=== PATIENT | female | born 1985 | race Hispanic/Latino ===

== ENCOUNTER → 2018-05-27 07:56 | Outpatient (CLI) | payer OTHER, SELFPAY ==
[2018-05-27 09:08] LABS: HCG Quantitative /Beta subunit 272.25 mIU/mL
== END ==
PROVIDERS: PCP Family Medicine; Visit Provider Family Medicine
DX: N91.2 Amenorrhea, unspecified (principal)
CPT/HCPCS: 36415; 84702

== ENCOUNTER → 2019-02-03 15:03 | Outpatient (CLI) | payer OTHER, SELFPAY ==
[2019-02-03 16:21] LABS: HCG Quantitative /Beta subunit 8843.3 mIU/mL
== END ==
PROVIDERS: PCP Family Medicine; Visit Provider Family Medicine
DX: N91.2 Amenorrhea, unspecified (principal)
CPT/HCPCS: 36415; 84702

== ENCOUNTER → 2019-03-14 16:00 | Outpatient (CLI) | payer OTHER, SELFPAY ==
[2019-03-14 17:07] LABS: Appearance Urine UA CLEAR; Bilirubin Urine UA NEGATIVE (NEGATIVE); Color Urine UA YELLOW; Glucose Urine UA NEGATIVE (Negative); Ketones Urine UA NEGATIVE (NEGATIVE); Leukocyte Esterase Urine UA NEGATIVE (NEGATIVE); Nitrite Urine UA NEGATIVE (Negative); Occult Blood Urine UA NEGATIVE (Negative); Protein Urine UA NEGATIVE (Negative); Specific Gravity Urine UA <=1.005 (1.000-1.035); Urobilinogen Urine UA 0.2 E.U./dL (0.2); pH Urine UA 6.5 (4.5-8.0)
[2019-03-14 17:19] LABS: Add Manual Diff / Slide Review NO; Basophils Absolute Auto 0 /uL (0-100); Basophils Percent Auto 0.4 % (0-2); Eosinophils Absolute Auto 200 /uL (0-450); Eosinophils Percent Auto 1.7 % (2-4); Hematocrit 38.7 % (36-46); Hemoglobin 13.4 g/dL (12.0-16.0); Lymphocytes Absolute Auto 2100 /uL (1100-4500); Mean Corpuscular HGB Conc 34.5 % (30-36); Mean Corpuscular Hemoglobin 29.5 PG (26-34); Mean Corpuscular Volume 85.3 fL (80-100); Monocytes Absolute Auto 500 /uL (0-900); Monocytes Percent Auto 4.7 % (3-14); Neutrophils Absolute Auto 8300 /uL (1500-7000); Neutrophils Percent Auto 74.2 % (50-75); Platelet Count 278 X10^3/uL (150-400); Red Blood Cell Count 4.54 X10^6/uL (4.0-5.2); Red Cell Distribution Width 12.9 % (11.6-14.8); White Blood Cell Count 11.1 X10^3/uL (4.5-11.0)
[2019-03-14 20:55] LABS: Rubella Antibody IgG 66.2 IU/mL (>15)
[2019-03-14 20:59] LABS: Hepatitis B Surface Antigen NEGATIVE s/c (NEGATIVE)
[2019-03-14 21:15] LABS: HIV 1 and 2 Antibody NEGATIVE (NEGATIVE); Hep C Virus Ab w/Reflex Quant NEGATIVE s/c (NEGATIVE)
[2019-03-16 13:59] LABS: RPR Screen Nonreactive (Nonreactive)
== END ==
PROVIDERS: PCP Family Medicine; Visit Provider Obstetrics & Gynecology
DX: Z34.81 Encounter for supervision of other normal pregnancy, first trimester (principal)
CPT/HCPCS: 36415; 80055; 81003; 86703; 86787; 86803; 86850; 86900; 86901; 87077; 87086

== ENCOUNTER → 2019-05-12 16:34 | Outpatient (CLI) | payer OTHER, SELFPAY ==
[2019-05-19 16:04] LABS: AFP, Serum 43.2 ng/mL; Calc Gestational Age 19.1; Cigarette Smoker NO; Donated Egg NOT GIVEN; Donor Egg Age NOT GIVEN; Estriol, Free 1.56 ng/mL; Inhibin A, Dimeric 179 pg/mL; Maternal Weight 177 lbs; Number of Fetuses NOT GIVEN; Previous Pregnancy Down Syndro NOT GIVEN; hCG, MoM 1.57; hCG, Serum 30.1 IU/mL
== END ==
PROVIDERS: PCP Family Medicine; Visit Provider Obstetrics & Gynecology
DX: Z34.82 Encounter for supervision of other normal pregnancy, second trimester (principal)
CPT/HCPCS: 36415; 82105; 82677; 84702; 86336

== ENCOUNTER → 2019-05-19 10:51 | Outpatient (CLI) | payer OTHER, SELFPAY ==
--- NOTE | 2019-05-19 10:54 | DI.US.S_ITS ---
PROCEDURE: US OB >= 14 WEEKS FETUS INDICATIONS: Anatomic Survey OUTSIDE/PRIOR DATING DATA: Last menstrual period (LMP): 12/29/18. LMP-based estimated date of delivery (TUTU): 10/05/19. First dating scan (date and location): 05/19/19. Estimated date of delivery (TUTU) from first dating scan: 10/04/19. TECHNIQUE: Real-time scanning was performed of the fetus, with image documentation and biometric measurements. Endovaginal scanning: Not performed COMPARISON: [facility], , US OB >= 14 WEEKS FETUS, 05/12/2019, 16:27. FINDINGS: General: A single living intrauterine gestation is present. Presentation: variable Placenta: Placental position is inferior, without previa. Amniotic fluid index: 13.3 cm, normal range is 5-24 cm. largest vertical fluid pocket measured 3.8 cm heart rate: 153 beats per minute. Maternal cervical canal: 4.9 cm long. Normal lower limit is 2.5 cm. biometrics: Biparietal diameter: 4.5 cm, correlating with 19 weeks and 4 days Head circumference: 17.3 cm, correlating with 19 weeks and 6 days Abdominal circumference: 16.3 cm, correlating with 21 weeks and 3 days Femur length: 3.5 cm, correlating with 21 weeks and 0 days. Estimated gestational age from initial scan: not applicable. Composite gestational age from present scan: 20 weeks and 2 days Estimated weight and percentile: 392 g which places the fetus within the 83rd percentile based on gestational age. Anatomic survey: Neuro: Ventricles are non-dilated at less than 10 mm. Cisterna magna is normal at 3-11 mm. Cerebellum is normal in size and morphology. Nuchal skin fold: Normal at less than 6 mm between 14-21 weeks gestational age. Face: Nose and lips, facial profile are normal. Spine: No evidence for spina bifida. Heart: 4-chambered heart is present, with normal ventricular outflow tracts. Incidental note of several episodes of occasional arrhythmias. This persisted intermittently throughout the duration of this examination. Diaphragm: Diaphragm is intact. Stomach: Left-sided stomach is present. Kidneys: No hydronephrosis. Normal is less than 5 mm in 2nd trimester, less than 7 mm in 3rd trimester. Cord: 3-vessel cord has orthotopic insertion. Bladder: Normal in size. Extremities: All 4 extremities identified. IMPRESSION: 1. Single living intrauterine gestation with an estimated sonographic gestational age of approximately 20 weeks and 2 days versus approximately 20 weeks and 5 days by last menstrual period. Measurements are concordant. Estimated weight of approximately 392 g which places the fetus within the 83rd percentile based on gestational age. 2. Unremarkable anatomic screening survey; however, incidental note of a few episodes of arrhythmia/premature atrial contractions. Recommend correlation with maternal risk factors/medical history with short interval followup ultrasound to document persistence versus resolution or echocardiogram to further evaluate. Findings were discussed telephonically with Dr. Castaneda as well as the patient before discharge from the radiology department. Dictated by: Juanito Mejia M.D. on 05/19/2019 at 13:29 Approved by: Juanito Mejia M.D. on 05/19/2019 at 13:52
== END ==
PROVIDERS: PCP Family Medicine; Visit Provider Obstetrics & Gynecology
DX: Z34.82 Encounter for supervision of other normal pregnancy, second trimester (principal); Z3A.20 20 weeks gestation of pregnancy
CPT/HCPCS: 76811

== ENCOUNTER → 2019-07-08 10:12 | Outpatient (CLI) | payer OTHER, SELFPAY ==
[2019-07-08 12:56] LABS: Hematocrit 37.5 % (36-46); Hemoglobin 13.3 g/dL (12.0-16.0)
[2019-07-10 16:37] LABS: GTT (PREG) 1 Hour PP 50gm Dose 115 mg/dL (76-139)
== END ==
PROVIDERS: PCP Family Medicine; Visit Provider Obstetrics & Gynecology
DX: Z34.82 Encounter for supervision of other normal pregnancy, second trimester (principal)
CPT/HCPCS: 82950; 85014; 85018

== ENCOUNTER 2019-09-11 02:30 | Inpatient (IN) | payer OTHER, SELFPAY ==
[2019-09-11 03:15] VITALS: BP 123/69
--- NOTE | 2019-09-11 03:29 | DI.US.S_ITS ---
PROCEDURE: US OB LIMITED INDICATIONS: PRESENTATION OUTSIDE/PRIOR DATING DATA: Last menstrual period (LMP): 12/29/18. LMP-based estimated date of delivery (TUTU): 10/05/19. First dating scan (date and location): 03/14/19. Estimated date of delivery (TUTU) from first dating scan: 10/04/19. TECHNIQUE: Real-time scanning was performed of the fetus, with image documentation. COMPARISON: [facility], , US OB >= 14 WEEKS FETUS, 08/16/2019, 10:11. [facility]ed With [facility], , US OB >= 14 WEEKS FETUS, 05/19/2019, 11:01. [facility], , US OB >= 14 WEEKS FETUS, 05/12/2019, 16:27. [facility], , US OB >= 14 WEEKS FETUS, 04/17/2019, 15:31. [facility], , US OB <= 14 WEEKS FETUS, 03/14/2019, 15:42. FINDINGS: A single living intrauterine gestation is present. Presentation: Vertex. Placenta: Placental position is fundal, without previa. . heart rate: 160 beats per minute. Estimated gestational age from initial scan: 36 weeks 5 days. IMPRESSION: Limited exam noting single live intrauterine in vertex position. Dictated by: Esther Rodriguez M.D. on 09/11/2019 at 8:46 Approved by: Esther Rodriguez M.D. on 09/11/2019 at 8:47
[2019-09-11] MEDS: PENICILLIN G POTASSIUM 5,000,000 UNIT in DEXTROSE 5% IN WATER 250 ML IV (04:31)
[2019-09-11] MEDS: LACTATED RINGERS 1,000 ML 100 ML IV (04:32)
[2019-09-11 04:54] LABS: Hematocrit 37.5 % (36-46); Hemoglobin 13.6 g/dL (12.0-16.0); Red Blood Cell Count 4.69 X10^6/uL (4.0-5.2); White Blood Cell Count 9.4 X10^3/uL (4.5-11.0)
[2019-09-11 04:56] LABS: Mean Corpuscular HGB Conc 36.3 % (30-36); Platelet Count 256 X10^3/uL (150-400); Red Cell Distribution Width 14.2 % (11.6-14.8)
[2019-09-11 04:57] LABS: Add Manual Diff / Slide Review YES
[2019-09-11] MEDS: CALCIUM CARBONATE 500 MG TAB 1000 MG PO (05:12)
[2019-09-11 06:55] LABS: Neutrophils Absolute Manual 6956 /uL (3000-5900); Spherocytes 1+; Total Cells Counted 100
[2019-09-11] MEDS: LACTATED RINGERS 1,000 ML 125 ML IV ×2 (08:38→08:45)
[2019-09-11] MEDS: CEFAZOLIN 2 GM/100 ML FROZ.PIGGY IV ×2 (08:38→08:40)
[2019-09-11 10:45] LABS: Strep Grp B PCR POS for Grp B Strep
[2019-09-11] MEDS: CEFAZOLIN 1 GM/50 ML FROZ.PIGGY IV (16:45)
--- NOTE | 2019-09-11 20:16 | P.HPOB_ITS ---
OB HPI Date/Time Date of admission: 09/11/19 Date Patient Seen: 09/11/19 Time Patient Seen: 07:30 History of Present Condition Chief complaint: Evaluation of Labor : 3 Para: 1 Estimated Date of Delivery: 10/05/19 Estimated Gestational Age (weeks): 36+4 Narrative: Breonna Reis is a 34 year old female 3 para 1 at 36-,4/7 weeks gestation with spontaneous rupture membranes at 2:30 a.m. this morning Very irregular contractions. Group B strep has not been obtained as of yet History of Present care: good care, initiated at week # (10), number of visits (7) and pounds weight gain (5) Dating criteria: LMP confirmed by 1st trimester US Ultrasounds: normal 1st trimester US Abnormal ultrasound findings: PAC's. Normal echo Obstetrical complications: none Medical complications: none Preadmission Labs Blood type: O (+) positive -: Antibody screen: negative, GBS status: unknown, HBsAG: negative, HIV: n egative and RPR/VDLR: negative -: Chlamydia screen: not detected and Gonorrhea screen: not detected -: Rubella: immune and Varicella: immune HCT: 37.5 HCAB: negative PAP: Abnormal (ASCUS, +HR HPV) Quad screen: Normal Urine: No Growth 1 hr GTT: 115 Prior (ies) History: at 38.6 oligohydramnios inductio SAB at 8 wks Evaluation Evaluation Baseline heart rate: 135 Variability: Moderate (11-25) monitor accelerations: Present monitor decelerations: Absent Contraction Frequency (minutes): 10 Uterine Contraction Intensity: Mild Category of Tracing: I Cervical dilation (cm): 1 Cervical effacement (%): 60 station: -3 Laboratory results: Laboratory Tests 09/11/19 09/11/19 09/11/19 03:35 03:35 08:04 WBC 9.4 RBC 4.69 Hgb 13.6 Hct 37.5 MCV 80.0 MCH 29.0 MCHC 36.3 H RDW 14.2 Plt Count 256 Neut % (Auto) Not Reportable Lymph % (Auto) Not Reportable Cascade % (Auto) Not Reportable Eos % (Auto) Not Reportable Baso % (Auto) Not Reportable Lymph # (Auto) Not Reportable Cascade # (Auto) Not Reportable Baso # (Auto) Not Reportable Total Counted 100 Seg Neutrophils % 71.0 H Band Neutrophils % 3.0 Lymphocytes % (Manual) 19.0 L Atypical Lymphs % 4.0 H Monocytes % (Manual) 3.0 Neutrophils # (Manual) 6956 H Plt Morphology Comment RBC Morphology See below Spherocytes 1+ H Group B Strep (PCR) Pos for grp b strep H Blood Type O Positive Antibody Screen Negative PFSH Social History Smoking Status: Never smoker alcohol intake: current substance use type: does not use Meds Home Medications and Allergies Home Medications Medication Instructions Recorded Confirmed Type PNV cmb#95-ferrous fumarate-FA 1 tab PO DAILY 09/11/19 09/11/19 History [] Allergies Allergy/AdvReac Type Severity Reaction Status Date / Time No Known Drug Allergies Allergy Verified 09/11/19 03:38 Exam Vital Signs (past 8 hours): Generally: No acute distress Lungs: Clear to auscultation bilaterally Cardiovascular: Regular rate and rhythm Fundal height: 37 cm Estimated weight 7 lb Extremities: Trace edema Objective Labs Result Diagrams: 09/11/19 03:35 Labs: Laboratory Results - last 24 hr 09/11/19 09/11/19 09/11/19 03:35 03:35 08:04 WBC 9.4 RBC 4.69 Hgb 13.6 Hct 37.5 MCV 80.0 MCH 29.0 MCHC 36.3 H RDW 14.2 Plt Count 256 Neut % (Auto) Not Reportable Lymph % (Auto) Not Reportable Cascade % (Auto) Not Reportable Eos % (Auto) Not Reportable Baso % (Auto) Not Reportable Lymph # (Auto) Not Reportable Cascade # (Auto) Not Reportable Baso # (Auto) Not Reportable Total Counted 100 Seg Neutrophils % 71.0 H Band Neutrophils % 3.0 Lymphocytes % (Manual) 19.0 L Atypical Lymphs % 4.0 H Monocytes % (Manual) 3.0 Neutrophils # (Manual) 6956 H Plt Morphology Comment RBC Morphology See below Spherocytes 1+ H Group B Strep (PCR) Pos for grp b strep H Blood Type O Positive Antibody Screen Negative Assessment and Plan Assessment and Plan Assessment and Plan narrative: Assessment: 34-year-old 3 para 1 at 36-,4/7 weeks gestation with spontaneous rupture membranes with irregular contractions Patient's in the and traveling home from [place], will be here this evening Patient's desire is not to start augmentation as of yet Plan: GBS obtained Cefazolin 2 g q.8 hours Expected management to spontaneous vaginal delivery Time Spent with Patient Total time spent with greater than 50% in coordination of care (as documented) at patient's floor/unit and/or counseling patient:: 15-24 minutes
--- NOTE | 2019-09-11 20:23 | PM.OBPRVD ---
 Events: Labor < 37 Weeks and Premature Rupture of Membrane Labor & Delivery Delivery date: 09/11/19 Cervical ripening method: none Induction method: none Delivery monitor: external FHT and external uterine Route of delivery: Episiotomy description: None L&D Laceration Description: Superficial (Periurethral, right labial, introitus) Delivery repair: chromic (4-0) Estimated blood loss (mL): 75 Anesthesia type: Epidural Complications: None Narrative: Patient complete and pushed x2. At 7:30 p.m., a live female infant delivered spontaneously over an intact perineum. No nuchal cord. The remainder of the body delivered without difficulty and was placed on mom's abdomen. The cord was double clamped and cut after it stopped pulsing. Cord bloods were obtained. The placenta delivered intact with a 3 vessel cord at 7:47 p.m.. Pitocin was given in the IV fluids prior to placental delivery. The fundus was massaged to firm. The bladder was emptied of approximately 250 cc of clear yellow urine. There were 3 superficial lacerations that were repaired with 4 0 chromic. The 1st was periurethral, the 2nd was on the right labia, the 3rd was at the introitus. Hemostasis was achieved. Estimated blood loss 75 cc. Apgars 9 at 1 minute and 9 at 5 minutes. Epidural analgesia. . Mom and stable to recovery. Plan for aftercare: Routine care
[2019-09-11] MEDS: IBUPROFEN 600 MG TABLET PO (21:14)
[2019-09-11] MEDS: OXYTOCIN 10 UNIT/ML VIAL IM (21:14)
[2019-09-12] MEDS: IBUPROFEN 600 MG TABLET PO ×4 (03:04→21:34)
[2019-09-12 06:05] LABS: Hematocrit 35.5 % (36-46); Hemoglobin 12.7 g/dL (12.0-16.0)
[2019-09-12] MEDS: DOCUSATE 250 MG CAPSULE PO (09:26)
[2019-09-12] MEDS: PRENATAL VIT,CALC/IRON/FOLIC 1 TABLET 1 TAB PO (09:26)
[2019-09-12] MEDS: ACETAMINOPHEN 325 MG TABLET 650 MG PO ×2 (12:55→20:01)
--- NOTE | 2019-09-12 21:18 | PM.OBPN.1 ---
Exam Vital Signs (past 8 hours): Generally: Patient is sitting up in bed, nursing , no acute distress Fundus: Firm at U -1 Extremities: Negative Homans, no edema Objective Labs Result Diagrams: 09/12/19 05:45 Labs: Laboratory Results - last 24 hr 09/12/19 05:45 Hgb 12.7 Hct 35.5 L Assessment & Plan Plan day: 1 plan OB: routine care Comments: Probable D/C 09/13/19 Time Spent With Patient Time: Total time spent is greater than 50% in coordination of care (as documented) at patient's floor/unit and/or counseling patient: Time with patient: less than 15 minutes
[2019-09-13 03:26] VITALS: TEMP 37.1
[2019-09-13] MEDS: ACETAMINOPHEN 325 MG TABLET 650 MG PO (03:26)
[2019-09-13] MEDS: IBUPROFEN 600 MG TABLET PO (03:26)
[2019-09-13] MEDS: PRENATAL VIT,CALC/IRON/FOLIC 1 TABLET 1 TAB PO (08:52)
[2019-09-13] MEDS: DOCUSATE 250 MG CAPSULE PO (08:52)
[2019-09-13 09:25] VITALS: BP 108/75; PULSE 68; RESP 16; TEMP 36.8
[2019-09-13] MEDS: LANOLIN OINT 7 GM 1 APPLIC TOP (12:39)
--- NOTE | 2019-09-13 23:49 | PM.OBDS.1 ---
Discharge Providers Provider Date of admission: 09/11/19 02:30 Discharge Date: 09/13/19 Primary care physician: Erin Diana DO Consults: 09/11/19 20:31 Consult to Physical Therapy Aide Routine Comment: Discharge provider: Zahida Castaneda MD Summary Hospital Course Date Patient Seen: 09/13/19 Time Patient Seen: 07:45 Procedures: Spontaneous vaginal delivery Epidural analgesia Hospital Course: Patient is a 34-year-old who presented at 36-,5/7 weeks gestation with spontaneous rupture of membranes. Several hours later she started having contractions and cervical dilation. No Pitocin augmentation was necessary. She progressed to complete dilation and had a spontaneous vaginal delivery. Her course was unremarkable. Peripartum Data Infant Delivery Method: Natural Vaginal Laceration description: Superficial Episiotomy description: None Procedures: Spontaneous vaginal delivery Epidural analgesia Superficial laceration repair complications: none Status at Discharge Cognitive/behavioral status at discharge: oriented Functional status at discharge: independent ambulation Overall status at discharge: patient is progressing back to baseline Time Spent with Patient Time attestation: Total time spent providing and/or coordinating discharge services: Time spent: Less than 30 minutes Objective Labs Result Diagrams: 09/12/19 05:45 Exam Vital Signs (past 8 hours): Generally: Patient is sitting up in bed, holding , no acute distress Fundus: Firm at U -2 Extremities: Trace edema, negative Homans Discharge Plan Discharge Plan Patient Disposition: Home Discharge comment: Call with fever, chills or bleeding vaginally more than a pad in an hour Tylenol/Ibuprofen for pain Discharge Med Rec/Prescriptions Prescriptions: Continued PNV cmb#95-ferrous fumarate-FA [] 28 mg iron- 800 mcg Tablet 1 tab PO DAILY RF: 0 Follow up/Referrals: Zahida Castaneda MD [Physician] - 6 Weeks (Appointment with on at 4:00pm check.) Provider Discharge Instructions Activity: No intercourse Skin/Wound/Dressing Care Report to your healthcare provider any signs of infection, such as:: chills, fever, increased pain and unusual drainage Visit Report/Discharge Packet Instructions: DI for Labor and Delivery, Vaginal Stand Alone Forms: Discharge: Care Discharge Data Primary Care Provider: Erin Diana Discharges patient from system. Discharge Date/Time: 09/13/19 13:38
== END 2019-09-13 13:38 | disposition home or self-care (01) | DRG 807 ==
PROVIDERS: Obstetrics & Gynecology; Admitting Provider Obstetrics & Gynecology; PCP Family Medicine; Visit Provider Obstetrics & Gynecology
DX: O60.14X0 Preterm labor third trimester with preterm delivery third trimester, not applicable or unspecified (principal); Z37.0 Single live birth; O70.0 First degree perineal laceration during delivery; Z3A.36 36 weeks gestation of pregnancy
CPT/HCPCS: 01967; 36415; 59050; 59400; 76815; 84112; 85014; 85018; 85025; 86850; 86900; 86901; 87653; G0379; J0690; J2540; J2590

== ENCOUNTER → 2019-09-28 09:24 | Outpatient (CLI) | payer OTHER, SELFPAY ==
[2019-09-28 10:22] LABS: Appearance Urine UA CLOUDY; Bilirubin Urine UA NEGATIVE (NEGATIVE); Color Urine UA YELLOW; Glucose Urine UA NEGATIVE (Negative); Ketones Urine UA NEGATIVE (NEGATIVE); Leukocyte Esterase Urine UA 2+ (NEGATIVE); Nitrite Urine UA NEGATIVE (Negative); Occult Blood Urine UA 3+ (Negative); Protein Urine UA 2+ (Negative); Urobilinogen Urine UA 0.2 E.U./dL (0.2)
[2019-09-28 10:30] LABS: pH Urine UA 5.5 (4.5-8.0)
[2019-09-28 10:36] LABS: Bacteria Urine Many (>30); Culture Indicated Urine Specimen Cultured; RBC Urine 30-100/HPF (0-5/HPF); WBC Urine >100/HPF (0-5/HPF)
== END ==
PROVIDERS: Family Provider Family Medicine; PCP Family Medicine; Visit Provider Obstetrics & Gynecology
DX: R39.9 Unspecified symptoms and signs involving the genitourinary system (principal)
CPT/HCPCS: 81001; 87077; 87086; 87186

== ENCOUNTER → 2020-10-04 15:40 | Outpatient (CLI) | payer OTHER, SELFPAY ==
--- NOTE | 2020-10-04 15:43 | DI.RAD.S_ITS ---
PROCEDURE: XR LUMBAR SPINE 2-3V INDICATIONS: back pain TECHNIQUE: 3 views of the lumbar spine were acquired. COMPARISON: None. FINDINGS: Bones: No fracture. Mild dextrocurvature. Multilevel degenerative endplate sclerosis and spurring. Diffuse facet arthropathy. Mild diffuse lower thoracic disc space narrowing. Lumbar disc spaces grossly preserved. Soft tissues: Overlying bowel gas pattern is normal. No suspicious soft tissue calcifications. IMPRESSION: Mild dextrocurvature Mild lower thoracic spondylosis. Diffuse facet arthropathy Dictated by: Mansoor Thomas M.D. on 10/04/2020 at 16:57 Approved by: Mansoor Thomas M.D. on 10/04/2020 at 16:58
--- NOTE | 2020-10-04 15:43 | DI.RAD.S_ITS ---
PROCEDURE: XR THORACIC SPINE 3V INDICATIONS: back pain TECHNIQUE: 3 views of the thoracic spine were acquired. COMPARISON: None. FINDINGS: Bones: No fractures or dislocations. No suspicious bony lesions. Multilevel degenerative endplate sclerosis and spurring. Diffuse facet arthropathy. Soft tissues: No paravertebral stripe thickening. IMPRESSION: No fracture Dictated by: Mansoor Thomas M.D. on 10/04/2020 at 16:58 Approved by: Mansoor Thomas M.D. on 10/04/2020 at 17:00
[2020-10-05 09:23] LABS: Add Manual Diff / Slide Review NO; Basophils Absolute Auto 100 /uL (0-100); Eosinophils Absolute Auto 400 /uL (0-450); Eosinophils Percent Auto 3.2 % (2-4); Hematocrit 41.6 % (36-46); Hemoglobin 14.1 g/dL (12.0-16.0); Lymphocytes Absolute Auto 2300 /uL (1100-4500); Lymphocytes Percent Auto 20.8 % (25-40); Mean Corpuscular HGB Conc 33.8 % (30-36); Mean Corpuscular Hemoglobin 29.2 PG (26-34); Mean Corpuscular Volume 86.3 fL (80-100); Monocytes Absolute Auto 600 /uL (0-900); Neutrophils Absolute Auto 7900 /uL (1500-7000); Platelet Count 350 X10^3/uL (150-400); Red Blood Cell Count 4.82 X10^6/uL (4.0-5.2); Red Cell Distribution Width 13.5 % (11.6-14.8); White Blood Cell Count 11.2 X10^3/uL (4.5-11.0)
== END ==
PROVIDERS: Family Provider Family Medicine; PCP Family Medicine; Referring Provider Registered Nurse; Visit Provider Registered Nurse
DX: M47.814 Spondylosis without myelopathy or radiculopathy, thoracic region (principal); M47.816 Spondylosis without myelopathy or radiculopathy, lumbar region; R79.89 Other specified abnormal findings of blood chemistry; Z79.899 Other long term (current) drug therapy
CPT/HCPCS: 36415; 72072; 72100; 80053; 85025

== ENCOUNTER → 2020-10-08 10:15 | Outpatient (CLI) | payer OTHER, SELFPAY ==
[2020-10-08 11:12] LABS: Alanine Aminotransferase 21 IU/L (<35); Albumin 4.1 g/dL (3.5-5.0); Albumin Globulin Ratio 1.2 (1.0-2.8); Alkaline Phosphatase 59 U/L (38-126); BUN Creatinine Ratio 28.2 (6-22); Bilirubin Total 0.8 mg/dL (0.2-1.3); Blood Urea Nitrogen 22 mg/dL (7-17); Calcium 9.4 mg/dL (8.4-10.2); Carbon Dioxide 26 mmol/L (22-32); Chloride 106 mmol/L (98-107); Estimated Glomerular Filt Rate > 60.0 mL/min (>60); Globulin 3.4 g/dL (1.7-4.1); Glucose 104 mg/dL (70-100); Sodium 137 mmol/L (137-145); Total Protein 7.5 g/dL (6.3-8.2)
[2020-10-08 11:15] LABS: Aspartate Aminotransferase 32 IU/L (14-36); HEMOLYSIS 132 (0-50); Potassium 4.8 mmol/L (3.4-5.1)
== END ==
PROVIDERS: Family Provider Family Medicine; PCP Family Medicine; Referring Provider Family Medicine; Visit Provider Family Medicine
DX: R79.89 Other specified abnormal findings of blood chemistry (principal)
CPT/HCPCS: 36415; 80053

== ENCOUNTER → 2020-11-21 16:26 | Outpatient (CLI) | payer OTHER, SELFPAY ==
[2020-11-21 17:04] LABS: Alanine Aminotransferase 14 IU/L (<35); Albumin 4.2 g/dL (3.5-5.0); Albumin Globulin Ratio 1.3 (1.0-2.8); Alkaline Phosphatase 80 U/L (38-126); Aspartate Aminotransferase 23 IU/L (14-36); Bilirubin Total 0.4 mg/dL (0.2-1.3); Blood Urea Nitrogen 20 mg/dL (7-17); Calcium 9.5 mg/dL (8.4-10.2); Carbon Dioxide 28 mmol/L (22-32); Chloride 106 mmol/L (98-107); Estimated Glomerular Filt Rate 55.9 mL/min (>60); Globulin 3.2 g/dL (1.7-4.1); Glucose 123 mg/dL (70-100); HEMOLYSIS < 15 (0-50); Potassium 4.1 mmol/L (3.4-5.1); Sodium 138 mmol/L (137-145); Total Protein 7.4 g/dL (6.3-8.2)
[2020-11-21 17:19] LABS: Free T4, Direct Thyroxine 1.11 ng/dL (0.78-2.19)
[2020-11-21 17:33] LABS: Thyroid Stimulating Hormone 1.74 uIU/mL (0.47-4.68)
== END ==
PROVIDERS: Registered Nurse; Family Provider Family Medicine; PCP Family Medicine; Referring Provider Family Medicine; Visit Provider Family Medicine
DX: G89.29 Other chronic pain (principal); M54.5 Low back pain; Z79.899 Other long term (current) drug therapy; E01.0 Iodine-deficiency related diffuse (endemic) goiter
CPT/HCPCS: 36415; 80053; 84439; 84443

== ENCOUNTER → 2020-12-02 13:51 | Outpatient (CLI) | payer OTHER, SELFPAY ==
[2020-12-02 14:03] LABS: Add Manual Diff / Slide Review NO; Basophils Absolute Auto 100 /uL (0-100); Basophils Percent Auto 0.7 % (0-2); Eosinophils Absolute Auto 200 /uL (0-450); Eosinophils Percent Auto 2.3 % (2-4); Hemoglobin 15.1 g/dL (12.0-16.0); Lymphocytes Absolute Auto 2500 /uL (1100-4500); Lymphocytes Percent Auto 23.7 % (25-40); Mean Corpuscular HGB Conc 35.2 % (30-36); Mean Corpuscular Hemoglobin 28.9 PG (26-34); Mean Corpuscular Volume 82.2 fL (80-100); Monocytes Absolute Auto 400 /uL (0-900); Monocytes Percent Auto 4.3 % (3-14); Neutrophils Absolute Auto 7200 /uL (1500-7000); Platelet Count 325 X10^3/uL (150-400); Red Blood Cell Count 5.23 X10^6/uL (4.0-5.2); White Blood Cell Count 10.5 X10^3/uL (4.5-11.0)
[2020-12-02 15:19] LABS: BUN Creatinine Ratio 15.7 (6-22); Blood Urea Nitrogen 17 mg/dL (7-17); Calcium 9.6 mg/dL (8.4-10.2); Carbon Dioxide 28 mmol/L (22-32); Chloride 106 mmol/L (98-107); Estimated Glomerular Filt Rate 57.7 mL/min (>60); Glucose 98 mg/dL (70-100); HEMOLYSIS < 15 (0-50); Potassium 4.2 mmol/L (3.4-5.1); Sodium 139 mmol/L (137-145)
== END ==
PROVIDERS: Family Provider Family Medicine; PCP Family Medicine; Referring Provider Family Medicine; Visit Provider Family Medicine
DX: D72.829 Elevated white blood cell count, unspecified (principal); R73.9 Hyperglycemia, unspecified
CPT/HCPCS: 36415; 80048; 85025

== ENCOUNTER → 2020-12-31 12:49 | Outpatient (CLI) | payer OTHER, SELFPAY ==
--- NOTE | 2020-12-31 12:50 | DI.US.S_ITS ---
PROCEDURE: US THYROID INDICATIONS: ENLARGED THYROID GLAND TECHNIQUE: Real-time scanning was performed of the thyroid gland, with image documentation. COMPARISON: None. FINDINGS: Right: Thyroid lobe measures 5.2 x 1.5 x 2 cm, and is homogeneous in echotexture. Left: Thyroid lobe measures 5.2 x 1.7 x 2 cm, and is homogenous in echotexture. Isthmus: 2.6 mm thick. IMPRESSION: Unremarkable thyroid, without focal nodules seen. Dictated by: Haris Brewer M.D. on 12/31/2020 at 12:56 Approved by: Haris Brewer M.D. on 12/31/2020 at 12:57
== END ==
PROVIDERS: Family Provider Family Medicine; PCP Family Medicine; Referring Provider Family Medicine; Visit Provider Family Medicine
DX: E01.0 Iodine-deficiency related diffuse (endemic) goiter (principal)
CPT/HCPCS: 76536

== ENCOUNTER → 2021-01-15 09:10 | Outpatient (CLI) | payer OTHER, SELFPAY ==
[2021-01-15 09:19] LABS: Bacteria Urine None Seen; RBC Urine None Seen (0-5/HPF); WBC Urine None Seen (0-5/HPF)
[2021-01-15 09:34] LABS: Appearance Urine UA CLEAR; Bilirubin Urine UA NEGATIVE (NEGATIVE); Color Urine UA YELLOW; Glucose Urine UA NEGATIVE (Negative); Ketones Urine UA NEGATIVE (NEGATIVE); Leukocyte Esterase Urine UA NEGATIVE (NEGATIVE); Nitrite Urine UA NEGATIVE (Negative); Occult Blood Urine UA NEGATIVE (Negative); Protein Urine UA NEGATIVE (Negative); Specific Gravity Urine UA <=1.005 (1.000-1.035); Urobilinogen Urine UA 0.2 E.U./dL (0.2)
[2021-01-15 09:42] LABS: Culture Indicated Urine Cult Not Indicated; Urine Comments Microscopic Normal
[2021-01-15 10:23] LABS: BUN Creatinine Ratio 25.3 (6-22); Blood Urea Nitrogen 21 mg/dL (7-17); Calcium 9.2 mg/dL (8.4-10.2); Carbon Dioxide 28 mmol/L (22-32); Chloride 103 mmol/L (98-107); Estimated Glomerular Filt Rate > 60.0 mL/min (>60); Glucose 81 mg/dL (70-100); HEMOLYSIS < 15 (0-50); Potassium 4.4 mmol/L (3.4-5.1); Sodium 137 mmol/L (137-145)
== END ==
PROVIDERS: Family Provider Family Medicine; PCP Family Medicine; Referring Provider Family Medicine; Visit Provider Family Medicine
DX: N28.9 Disorder of kidney and ureter, unspecified (principal)
CPT/HCPCS: 36415; 80048; 81001

== ENCOUNTER → 2021-10-16 11:07 | Outpatient (CLI) | payer OTHER, SELFPAY | PROVIDERS: Family Provider Family Medicine; PCP Family Medicine; Referring Provider Physician Assistant; Visit Provider Physician Assistant | DX: N34.3 Urethral syndrome, unspecified (principal) | CPT/HCPCS: 87086 ==

== ENCOUNTER → 2021-10-16 11:51 | Outpatient (CLI) | payer OTHER, SELFPAY ==
--- NOTE | 2021-10-16 11:53 | DI.US.S_ITS ---
PROCEDURE: US ABDOMEN LIMITED INDICATIONS: RIGHT UPPER QUADRANT, BACK, AND SHOULDER PAIN. OBESITY. TECHNIQUE: Real-time focused scanning was performed of the abdomen, with image documentation. COMPARISON: None. FINDINGS: Normally distended gallbladder which is full of stones in echogenic sludge. The gallbladder wall measures up to 4 millimeters in thickness. Normal caliber intrahepatic and extrahepatic biliary ducts. Visualized portions the pancreas are grossly normal. Liver appears normal. IMPRESSION: Contracted gallbladder filled with stones and sludge. No findings of acute cholecystitis. Dictated by: Yoseph Yang M.D. on 10/16/2021 at 17:12 Approved by: Yoseph Yang M.D. on 10/16/2021 at 17:14
[2021-10-16 12:54] LABS: Add Manual Diff / Slide Review NO; Basophils Absolute Auto 100 /uL (0-100); Basophils Percent Auto 0.9 % (0-2); Eosinophils Absolute Auto 400 /uL (0-450); Eosinophils Percent Auto 4.2 % (2-4); Hematocrit 41.3 % (36-46); Hemoglobin 14.3 g/dL (12.0-16.0); Lymphocytes Absolute Auto 2400 /uL (1100-4500); Mean Corpuscular HGB Conc 34.7 % (30-36); Mean Corpuscular Hemoglobin 28.3 PG (26-34); Mean Corpuscular Volume 81.4 fL (80-100); Monocytes Absolute Auto 600 /uL (0-900); Monocytes Percent Auto 5.6 % (3-14); Neutrophils Absolute Auto 6500 /uL (1500-7000); Neutrophils Percent Auto 65.3 % (50-75); Platelet Count 353 X10^3/uL (150-400); Red Blood Cell Count 5.07 X10^6/uL (4.0-5.2); Red Cell Distribution Width 13.6 % (11.6-14.8); White Blood Cell Count 9.9 X10^3/uL (4.5-11.0)
[2021-10-16 13:43] LABS: Alanine Aminotransferase 19 IU/L (<35); Albumin 4.1 g/dL (3.5-5.0); Albumin Globulin Ratio 1.4 (1.0-2.8); Alkaline Phosphatase 65 U/L (38-126); Amylase 71 U/L (30-110); Aspartate Aminotransferase 21 IU/L (14-36); BUN Creatinine Ratio 21.4 (6-22); Bilirubin Total 0.5 mg/dL (0.2-1.3); Blood Urea Nitrogen 18 mg/dL (7-17); Calcium 9.8 mg/dL (8.4-10.2); Carbon Dioxide 25 mmol/L (22-32); Chloride 104 mmol/L (98-107); Estimated Glomerular Filt Rate > 60.0 mL/min (>60); Globulin 2.9 g/dL (1.7-4.1); Glucose 116 mg/dL (70-100); HEMOLYSIS < 15 (0-50); Lipase 143 U/L (23-300); Potassium 4.3 mmol/L (3.4-5.1); Sodium 137 mmol/L (137-145)
== END ==
PROVIDERS: Family Provider Family Medicine; PCP Family Medicine; Referring Provider Physician Assistant; Visit Provider Physician Assistant
DX: K82.8 Other specified diseases of gallbladder (principal); R10.11 Right upper quadrant pain; E66.9 Obesity, unspecified; M54.9 Dorsalgia, unspecified; M25.519 Pain in unspecified shoulder; N34.3 Urethral syndrome, unspecified
CPT/HCPCS: 36415; 76705; 80053; 82150; 83690; 85025; 87086

== ENCOUNTER → 2022-02-23 09:50 | Outpatient (CLI) | payer OTHER, SELFPAY ==
[2022-02-23 10:40] LABS: COVID19 -Nasal RAPID Negative (Negative)
== END ==
PROVIDERS: Family Provider Family Medicine; PCP Family Medicine; Visit Provider Surgery
DX: Z01.812 Encounter for preprocedural laboratory examination (principal); Z20.822 Contact with and (suspected) exposure to COVID-19
CPT/HCPCS: 87635; C9803

== ENCOUNTER 2022-02-24 09:38 | Day surgery (SDC) | payer OTHER, SELFPAY ==
[2022-02-20 13:21] VITALS: BMI 35.4
[2022-02-24] VITALS (10 sets, daily range): BP systolic 106–120; BP diastolic 53–78; PULSE 67–89; RESP 10–16; TEMP 36.3–37; O2SAT 95–100; BMI 35.4
--- NOTE | 2022-02-24 | PATH_ITS ---
[facility] Accession Number: [id number] No. of containers..01 Tissue . 01 Material submitted: . gallbladder - GALLBLADDER . 02 Diagnosis: Gallbladder, Cholecystectomy: Cholelithiasis with mild chronic cholecystitis and cholesterolosis. No evidence of neoplasm. [facility] 02/27/2022 1533 Local . 02 Electronically signed: . Norm Esquivel MD, PhD, Pathologist NPI- [id number] . 01 Gross description: . The specimen is received in formalin and labeled gallbladder consists of an intact gallbladder (8.2 x 3.0 x 2.6 cm, 0.1 cm average wall thickness). The cystic duct (0.3 cm diameter) is occluded by multiple geometric yellow calculi (4.7 x 4.2 x 1.0 cm in aggregate). The hepatic bed and serosal surfaces are grossly unremarkable. The hepatic bed is inked blue. Opening the specimen reveals bile-stained and markedly trabeculated mucosa. The specimen is representatively submitted as follows: . A1: Cystic duct margin, en face, and medical field representative sections of gallbladder fundus, body and cystic neck. ([id number]) /MRV 02/26/2022 1417 Local . 02 Pathologist provided ICD-10: K80.65 . 02 CPT . 795743 Specimen Comment: A courtesy copy of this report has been sent to [phone] Performed at: 01 [facility] [address] [place] [address], [place], [place] [id number] MD Jorge Vigil MD Phone: [phone] Performed at: [address] [facility] [address] [place], [place] [id number] MD Pao Hernandes MD Phone: [phone]
[2022-02-24] MEDS: LACTATED RINGERS 1,000 ML 42 ML IV ×2 (10:37→14:09)
--- NOTE | 2022-02-24 11:34 | PM.PREOP ---
Pre-operative Note COVID-19 COVID-19 status: Negative Result date/Date tested (Pos, Neg/Pending): 02/23/22 Interval Note History & Physical reviewed/Exam performed by Physician: Yes Changes to H&P: No ASA Class (for procedural sedation): II
--- NOTE | 2022-02-24 12:50 | SUR.PREOP ---
02/24/[id number]-Whifbza brought into preop. Explained OR delay in start time. given estimate of discharge time for home tonight, so can co-ordinate ride. 1030-Admission complete. given call light . hourly rounding. 1130-patient sleeping. wrote message and attached to cellphone on delay in going into OR today with new eta for home.will check in with patient later. 1230-Pt awake, states got information and past on to ride. OOB to restroom.
[2022-02-24] MEDS: CEFAZOLIN 2 GM/20 ML SYRINGE IV (13:13)
--- NOTE | 2022-02-24 13:34 | SUR.OPER ---
Supine on padded OR bed, head on pillow, safety belt at thigh, left arm padded and tucked at side. Right arm secured on padded arm board <90 degrees abduction. Legs uncrossed. Padded footboard in place. Tape over blanket to secure lower legs.
[2022-02-24] MEDS: BUPIVACAINE 0.5% (PF) VIAL 30 ML INJ (13:49)
[2022-02-24] MEDS: LIDOCAINE 1% W/EPI 20 ML INJ (13:49)
--- NOTE | 2022-02-24 15:22 | P.OP_ITS ---
Operative Date/Time/Diagnoses Date of procedure: 02/24/22 Time of procedure: 15:22 Pre-op diagnosis: Gallstones Procedure & Clinicians Procedure: Laparoscopic cholecystectomy Same procedure as scheduled: Yes Surgeon: Mike Galdamez Operative Notes Procedure in detail: The patient was given preoperative antibiotic. The patient was brought to the operating room, placed on the table in the supine position. General endotracheal anesthesia was induced. The abdomen was prepped and draped. A time-out was performed. We made a 1 cm midline incision above the umbilicus. We dissected down to the base of the fascia using cautery. We scored the fascia in the midline with cautery 1 cm. An 0 Vicryl suture was placed and used as a stay stitch to elevate the abdominal wall. We pierced the peritoneum with a Peon clamp. The Ramesh port was placed and the abdomen was insufflated to 15 mmHg. A 5 mm 30 degree laparoscopic was inserted. There was no evidence of any injury from the entry. Next, we placed 5 mm ports in the subxiphoid position and right upper quadrant at the midclavicular line and anterior axillary line. Patient was then positioned in reverse Trendelenburg and the table was tilted to the left. The liver was rather enlarged and the gallbladder was notably intrahepatic. The gallbladder was grasped at the dome and retracted cephalad. There were some adhesions of mesenteric tissue to the right liver which were carefully dissected with cautery to allow full retraction of the gallbladder. W e then dissected the cystic structures with a combination of hook cautery and blunt dissection. We obtained a critical view. We placed clips on the cystic duct and artery and divided the cystic duct and artery sharply between the clips. The gallbladder was then dissected off the liver and placed in a specimen retrieval bag. We irrigated the right upper quadrant and all the aspirate returned clear. We then removed the 5 mm ports under direct vision we removed the Ramesh port. We then injected some local into the fascia and closed the fascia with 2 interrupted 0 Vicryl sutures. The skin incisions were closed with 4 Monocryl and Steri-Strips were applied. Band-Aids were applied over the Steri-Strips. EBL: 10 mL Specimen: Gallbladder Post-operative Condition: stable Disposition: PACU
[2022-02-24] MEDS: OXYCODONE IR 5 MG TABLET PO ×2 (15:43→16:22)
[2022-02-24] MEDS: ACETAMINOPHEN 325 MG TABLET 650 MG PO (15:44)
--- NOTE | 2022-03-12 16:54 | PM.HP.1 ---
History of Present Illness History of Present Illness Date Patient Seen: 02/24/22 Chief complaint: LAP MAREN Narrative: The patient presents for laparoscopic cholecystectomy. See the office note from December 24, 2021 for details. Patient History Medical History Abnormal Pap smear of cervix (~2003) Acne Anxiety and depression Chicken pox (~1992) Irregular menstrual cycle Obesity (BMI 30-39.9) Ovarian cyst PCOS (polycystic ovarian syndrome) Vision disorder Family & Social History Family History Grandfather Diabetes mellitus Grandmother [place] (myocardial infarction) Heart disease Grandfather Age: 85 Hypertension Diabetes 1.5, managed as type 1 Grandmother Lymphoma in remission Social History: household members spouse Tobacco & Substance use: Smoking Status Never smoker alcohol intake current Substance Use Type does not use Meds Home Medications and Allergies Home Medications Medication Instructions Recorded Confirmed Type etonogestrel 0.12 mg-ethinyl 1 vag ring VAG Q4W #3 each 11/18/21 03/06/22 Rx estradiol 0.015 mg/24 hr vaginal ring (NuvaRing) escitalopram oxalate 10 mg tablet 10 mg PO DAILY #30 tab 01/26/22 03/06/22 Rx (Lexapro) hydrocodone 5 mg-acetaminophen 325 1 tab PO Q8H PRN #10 tab 02/24/22 03/06/22 Rx mg tablet Allergies Allergy/AdvReac Type Severity Reaction Status Date / Time No Known Drug Allergies Allergy Verified 03/06/22 16:16 Exam Vital Signs (past 8 hours): Oxygen Delivery Method Room Air Oxygen Flow Rate 2 Const General: No acute distress Resp Effort & Inspection: normal respiratory effort GI Other: Tender to palpation in the right upper quadrant Assessment & Plan Assessment and plan (1) Gallstones without obstruction of gallbladder: Qualifiers: Cholelithiasis location: gallbladder Cholecystitis presence: without cholecystitis Qualified Code(s): K80.20 - Calculus of gallbladder without cholecystitis without obstruction Status: Acute Plan Risks and benefits of laparoscopic cholecystectomy reviewed and she would like to proceed to surgery. Time Spent With Patient Critical Care time: I spent a total of [] minutes of critical care time on this patient's care today; this time is exclusive of procedural time.
== END 2022-02-24 17:00 | disposition home or self-care (01) ==
PROVIDERS: Family Provider Family Medicine; PCP Family Medicine; Referring Provider Surgery; Visit Provider Surgery
PROC: 0FT44ZZ Resection of Gallbladder, Percutaneous Endoscopic Approach (ICD-10-PCS; CPT 47562; principal; 2022-02-24 11:15)
DX: K80.10 Calculus of gallbladder with chronic cholecystitis without obstruction (principal); K80.20 Calculus of gallbladder without cholecystitis without obstruction; F41.9 Anxiety disorder, unspecified; F32.A Depression, unspecified; E66.9 Obesity, unspecified
CPT/HCPCS: 47562; 81025; 99281; J0330; J0690; J1100; J1885; J2405; J2704; J3010

== ENCOUNTER 2022-02-24 19:09 | Emergency (ER) | payer OTHER, SELFPAY ==
[2022-02-24 19:15] VITALS: BP 136/66; PULSE 64; RESP 20; TEMP 36.6; O2SAT 96
--- NOTE | 2022-02-24 20:50 | ED.RECABL ---
HPI - Recheck/Abnormal Lab/Rx General Chief Complaint: Recheck/Abnormal Lab/Rx Stated Complaint: just discharged from surgery at [facility] Time Seen by Provider: 02/24/22 20:21 Source: patient Mode of arrival: Ambulatory History of Present Illness HPI narrative: 36-year-old woman post elective laparoscopic cholecystectomy this afternoon comes in with complaints of fluid draining from the umbilical trocar site. She is having no pain, no fevers. The fluid is essentially clear, non odorous and non bloody. When she got home she noticed that there is enough fluid to soak through of washcloth and the leaking has continued. Seems to slow to stop when she is laying flat but when she stands up there is a bit more fluid leaking. She is looking for bit of reassurance. Related Data Previous Rx's Medication Instructions Recorded etonogestrel 0.12 mg-ethinyl 1 vag ring VAG Q4W #3 each 11/18/21 estradiol 0.015 mg/24 hr vaginal ring (NuvaRing) escitalopram oxalate 10 mg tablet 10 mg PO DAILY #30 tab 01/26/22 (Lexapro) hydrocodone 5 mg-acetaminophen 325 1 tab PO Q8H PRN #10 tab 02/24/22 mg tablet Allergies Allergy/AdvReac Type Severity Reaction Status Date / Time No Known Drug Allergies Allergy Verified 02/24/22 10:01 Review of Systems Review of Systems Narrative: Remainder of complete review of systems is otherwise unremarkable except for that included in the HPI. Patient History Medical History Abnormal Pap smear of cervix (~2003) Acne Anxiety and depression Chicken pox (~1992) Irregular menstrual cycle Obesity (BMI 30-39.9) Ovarian cyst PCOS (polycystic ovarian syndrome) Vision disorder Family History Grandfather Diabetes mellitus Grandmother [place] (myocardial infarction) Heart disease Grandfather Age: 85 Hypertension Diabetes 1.5, managed as type 1 Grandmother Lymphoma in remission Social History household members: spouse Smoking Status: Never smoker alcohol intake: current substance use type: does not use Smoking Status: Never smoker Substance Use Type: does not use Exam Initial Vital Signs Initial Vital Signs: Vital Signs Temperature 97.9 F 02/24/22 19:15 Pulse Rate 64 02/24/22 19:15 Respiratory Rate 20 02/24/22 19:15 Blood Pressure 136/66 02/24/22 19:15 Pulse Oximetry 96 02/24/22 19:15 General: Alert appropriate in no acute distress Respiratory: Able to speak in full sentences, no obvious respiratory distress Abdomen: Surgical trocar sites are examined all appear as expected 12 hours after procedure. The incision along the umbilicus is clean without spreading erythema she is still numb from postsurgical anesthetic. Lying flat there is no drainage when she does stand up there is a moderate amount of clear fluid that looks like it is either saline or peritoneal fluid draining from the site. Skin: No obvious rashes, warm and dry Neurologic: Grossly intact no obvious asymmetries or abnormalities Psych: appropriate insight and affect, cooperative Bedside ultrasound is done there is no evidence of seroma or significant fluid collection superficially and no significant ascites or collection of peritoneal fluid with deeper abdominal ultrasound. Course Vital Signs Vital signs: Vital Signs - 8 hr 02/24/22 19:15 Temperature 97.9 F Pulse Rate 64 Respiratory Rate 20 Blood Pressure 136/66 Pulse Oximetry 96 MDM - Recheck/Abnormal Lab/Rx MDM Narrative Medical decision making narrative: 36-year-old woman with scheduled lap choly this afternoon, serous drainage from her wound without signs of infection or pain.? Dr. Garibay is in the department and examines her as well.? This all appears to be saline or peritoneal fluid no signs of infection and likely will heal without any additional intervention.? Dr. Garibay has used a bit of Dermabond to reapproximate dermal edges and redressed the wound. An ABD bandage and mild pressure dressing are placed on top of this and reassurance is given and she is safe for home discharge Discharge Plan Departure Patient Disposition: Home Clinical Impression: Encounter for wound re-check Activity Restrictions/Additional Instructions: Thank you for coming in today There does not appear to be significant complication or infection. The skin edges do look like they slightly and Dr. Garibay used some skin glue to reapproximate these edges. Please keep your scheduled postoperative appointments and please feel free to return to the emergency department if you have worsening issues or concerns. Prescriptions: No Action escitalopram oxalate [Lexapro] 10 mg tablet 10 mg PO DAILY Qty: 30 3RF etonogestrel-ethinyl estradiol [NuvaRing] 0.12-0.015 mg/24 hr ring 1 vag ring VAG Q4W Qty: 3 0RF Label Comments: not using til next cycle Rx Instructions: leave in place for 3 weeks of a 4-week cycle hydrocodone-acetaminophen 5-325 mg tablet 1 tab PO Q8H PRN (Reason: pain) Qty: 10 0RF Referrals: Erin Diana DO [Primary Care Provider] -
== END 2022-02-24 21:17 | disposition home or self-care (01) ==
PROVIDERS: Emergency Provider Emergency Medicine; Family Provider Family Medicine; PCP Family Medicine
DX: Z48.815 Encounter for surgical aftercare following surgery on the digestive system (principal)